=== PATIENT | male | born 1960 | race Caucasian/White ===

== ENCOUNTER 2017-10-04 19:44 | Observation (INO) | payer BC ==
[2017-10-04] MEDS ORDERED: Nitroglycerin 0.4 MG Tab.SL SL PRN (19:51)
[2017-10-04] MEDS ORDERED: Aspirin 81 MG Tab.Chew PO ONE (19:52)
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
[2017-10-04 20:23] LABS: CHLORIDE,CL 105 mmol/L (98-110); SODIUM,NA 139 mmol/L (136-146)
[2017-10-04] MEDS ORDERED: Enoxaparin 40 MG/0.4 ML Syringe SUBCUT SCH (21:00)
[2017-10-04] MEDS ORDERED: Temazepam 15 MG Cap PO PRN (21:42)
[2017-10-04] MEDS ORDERED: Morphine 2 MG/ML Syringe IVPUSH PRN (21:42)
[2017-10-04] MEDS ORDERED: Ondansetron 4 MG/2 ML SDV IVPUSH PRN (21:42)
[2017-10-04] MEDS ORDERED: Ondansetron 4 MG Tab.DIS PO PRN (21:42)
[2017-10-04] MEDS ORDERED: Acetaminophen 325 MG Tab PO PRN (21:42)
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
[2017-10-05 07:32] VITALS: BP 135/77
[2017-10-05 08:48] LABS: CHLORIDE,CL 107 mmol/L (98-110); SODIUM,NA 138 mmol/L (136-146)
[2017-10-05] MEDS ORDERED: Aspirin 81 MG Tab.Chew PO SCH (09:00)
[2017-10-05] MEDS ORDERED: Clopidogrel 75 MG Tab PO SCH (09:00)
[2017-10-05] MEDS ORDERED: atorvaSTATin 40 MG Tab PO SCH (09:00)
[2017-10-05] MEDS ORDERED: Metoprolol Tartrate 50 MG Tab PO SCH (09:00)
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
--- NOTE | 2017-10-05 10:23 | CR ---
EXAM DATE: 10/04/17 PATIENT'S AGE: 56 Patient: MORGAN LINK Facility: [place], [place] Site . Site : [id number] Study: XRay Chest [id number]/26/2018 8:04:42 PM Ordering Physician: Doctor Garnica Final Report: INDICATION: SOB, CP TECHNIQUE: Chest 1 view COMPARISON: October 30, 2015 FINDINGS: Cardiovascular and mediastinum: Stable cardiac silhouette. Slight indistinct central vascularity. Mediastinum is within normal limits. Lungs and pleural space: No focal consolidation. Eventration of right hemidiaphragm. No sign of pleural effusion. No pneumothorax. Bones and soft tissues: No significant findings. IMPRESSION: Findings suggesting a mild component of pulmonary edema. Dictated by Artemio Tobar MD @ 10/04/2017 8:24:45 PM Dictated by: Artemio Tobar MD @ 10/04/2017 20:24:53 (Electronic Signature) Report Signed by Proxy. JULIETH
== END 2017-10-05 11:05 | disposition home or self-care (01) ==
LOC: MW.ED 19:44 → MW.MS 20:48
PROVIDERS: ADMIT Family Medicine; ATTEND Family Medicine
DX: R07.89 Other chest pain (principal); I25.10 Atherosclerotic heart disease of native coronary artery without angina pectoris; I25.2 Old myocardial infarction; I10 Essential (primary) hypertension; E78.5 Hyperlipidemia, unspecified; Z95.5 Presence of coronary angioplasty implant and graft; Z79.02 Long term (current) use of antithrombotics/antiplatelets; Z79.82 Long term (current) use of aspirin; Z79.899 Other long term (current) drug therapy; Z87.891 Personal history of nicotine dependence
CPT/HCPCS: 36415; 71045; 80048; 80053; 80061; 83735; 83880; 84484; 85025; 93005; 96372; 99285; A9270; G0378; J1650; 99284